=== PATIENT | male | born 1965 | race Caucasian/White ===

== ENCOUNTER 2019-07-03 21:38 | Emergency (ER) | payer SELFPAY ==
[~2019-07-03] VITALS: Ht 180.3 cm; Wt 88.0 kg
[2019-07-03 22:50] VITALS: BP 143/86
[2019-07-03] MEDS ORDERED: LIDOCAINE 1% PF 2 ML VIAL. INJ ONE (23:15)
[2019-07-03] MEDS ORDERED: SULF1TAB24 PO (23:35)
[2019-07-03] MEDS ORDERED: HYDR-3164 PO (23:35)
[2019-07-03] MEDS ORDERED: CEPH500T PO (23:35)
--- NOTE | 2019-07-03 23:35 | PHYS DOC ---
Past Medical History Past Medical History: No Pertinent History Past Surgical History: No Surgical History Smoking Status: Current Every Day Smoker Additional Information: pack /day Alcohol Use: None Adult General Chief Complaint Chief Complaint: FOOT INJURY PAIN HPI HPI Patient is a 53 year old male with no significant medical history who presents the ED today complaining of swelling and redness on the top of the left foot, that he noted this morning. Denies any injury, denies any fever. Review of Systems Review of Systems Constitutional: Denies fever or chills [] Musculoskeletal: Denies back pain or joint pain [] Integument: Reports pain, redness and swelling on top of the left foot Neurologic: Denies headache, focal weakness or sensory changes [] Endocrine: Denies polyuria or polydipsia [] All other systems were reviewed and found to be within normal limits, except as documented in this note. Current Medications Current Medications Current Medications Medications (Trade) Dose Ordered Sig/Yoko Start Time Stop Time Status Last Admin Dose Admin Ceftriaxone Sodium (Rocephin Im) 1 gm 1X ONCE 07/03/19 23:15 07/03/19 23:16 DC Diphtheria/ Tetanus/Acell Pertussis (ADACEL TDap SYRINGE) 0.5 ml ONCE ONCE 07/03/19 23:15 07/03/19 23:16 DC Lidocaine HCl (Xylocaine-Mpf 1% 2ml Vial) 2 ml 1X ONCE 07/03/19 23:15 07/03/19 23:16 DC Trimethoprim/ Sulfamethoxazole (Bactrim Ds) 1 tab 1X ONCE 07/03/19 23:15 07/03/19 23:16 DC Allergies Allergies Allergies Coded Allergies Type Severity Reaction Last Updated Verified iodine Allergy Unknown 07/03/19 Yes Physical Exam Physical Exam Constitutional: Well developed, well nourished, no acute distress, non-toxic appearance. [] Skin: Warm, dry, left ventral foot distal end just below the third and fourth toes with mild cellulitis. There is mild swelling on the foot only. Full range of motion to the foot. +2 left pedal pulse. Cap refill less than 2 seconds in left toes. Sensation intact. Back: No tenderness, no CVA tenderness. [] Extremities: No tenderness, no cyanosis, no clubbing, ROM intact, no edema. [] Neurologic: Alert and oriented X 3, normal motor function, normal sensory function, no focal deficits noted. [] Psychologic: Affect normal, judgement normal, mood normal. [] Current Patient Data Vital Signs Vital Signs Date Time Temp Pulse Resp B/P (MAP) Pulse Ox O2 Delivery O2 Flow Rate FiO2 07/03/19 22:50 98.1 72 18 143/86 (105) Room Air 98.1 EKG EKG [] Radiology/Procedures Radiology/Procedures [] Course & Med Decision Making Course & Med Decision Making Pertinent Labs and Imaging studies reviewed. (See chart for details) This is a 53-year-old male patient presenting to the ED today with left foot cellulitis. Tetanus is updated. Given Rocephin and started on Bactrim in the ED. Discharged on Bactrim and cephalexin. Tylenol/Motrin for pain or fever. Dragon Disclaimer Dragon Disclaimer This electronic medical record was generated, in whole or in part, using a voice recognition dictation system. Departure Departure Impression: Primary Impression: Cellulitis of left foot Disposition: HOME, SELF-CARE Condition: STABLE Referrals: NO PCP (PCP) follow up with your doctor in 1-2 weeks Patient Instructions: Cellulitis, [id number] Additional Instructions: You have cellulitis of the left foot. Take the prescribed antibiotic until completed. Keep your feet clean and dry. Scripts Hydrocodone/Apap 5-325 (NORCO 5-325 TABLET) 1 Each Tablet 1 TAB PO Q6HRS PRN for PAIN, #14 TAB Prov: JOSE FRANKLIN APRN 07/03/19 Cephalexin (CEPHALEXIN) 500 Mg Tablet 1 TAB PO TID, #30 TAB Prov: JOSE FRANKLIN APRN 07/03/19 Sulfamethoxazole/Trimethoprim (BACTRIM DS TABLET) 1 Each Tablet 1 TAB PO BID for 10 Days, #20 TAB 0 Refills Prov: JOSE FRANKLIN APRN 07/03/19 JOSE FRANKLIN APRN Jul 03, 2019 23:35
[2019-07-03] MEDS: SMZ/TMP 800/160MG TABLET. PO ONE (23:36)
[2019-07-03] MEDS: cefTRIAXone IM 1 GM VIAL IM ONE (23:37)
[2019-07-03] MEDS: DIPH,PERTUSS(ACELL),TET VAC/PF 0.5 ML SYRINGE. VAX IM ONE (23:39)
== END 2019-07-03 23:48 | disposition home or self-care (01) ==
LOC: ER 21:38
DX: L03.116 Cellulitis of left lower limb (principal); F17.200 Nicotine dependence, unspecified, uncomplicated; Z88.8 Allergy status to other drugs, medicaments and biological substances
CPT/HCPCS: 90471; 90715; 96372; 99284; J0696